=== PATIENT | female | born 1960 | race Caucasian/White ===

== ENCOUNTER → 2023-04-03 12:40 | Outpatient (CLI) | payer OTHER, SELFPAY ==
--- NOTE | 2023-04-03 12:43 | DI.MRI.S_ITS ---
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 After the administration of contrast, axial and coronal and sagittal 3D VIBE or T1 spin echo with fat saturation through the brain. COMPARISON: None. FINDINGS: Image quality: Excellent. CSF Spaces: Basal cisterns are patent. No extra-axial fluid collections. Expected dilatation of the atrium and occipital horn of the right lateral ventricle Ventricles are otherwise normal in size and shape. Brain: No midline shift. No intracranial bleeds or masses. No abnormal intracranial enhancement. The brainstem appears normal. Diffusion-weighted images demonstrate no acute ischemic insults. Encephalomalacia and gliosis within the right parietal and posterior temporal lobe secondary to prior insults. Normal intravascular flow voids are present. T2/FLAIR hyperintense signal within the periventricular and deep white matter, nonspecific and likely representing chronic microvascular ischemic change. Skull and face: Calvarial marrow is normal in signal. Orbits appear normal. Sinuses: Sinuses and mastoids appear clear. IMPRESSION: 1. No evidence of intracranial metastatic disease. 2. No acute intracranial abnormalities. 3. Chronic insult within the right parietal/posterior temporal lobe. Dictated by: Shailesh Tucker M.D. on 04/04/2023 at 9:05 Approved by: Shailesh Tucker M.D. on 04/04/2023 at 9:17
== END ==
PROVIDERS: PCP Specialist; Referring Provider Internal Medicine; Visit Provider Internal Medicine
DX: C34.92 Malignant neoplasm of unspecified part of left bronchus or lung (principal); C78.7 Secondary malignant neoplasm of liver and intrahepatic bile duct
CPT/HCPCS: 70553; A9579

== ENCOUNTER → 2023-05-26 07:48 | Outpatient (CLI) | payer OTHER, SELFPAY ==
--- NOTE | 2023-05-26 07:50 | DI.MRI.S_ITS ---
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 After the administration of contrast, axial and coronal and sagittal T1 spin echo with fat saturation through the brain. COMPARISON: [facility], MR, MR HEAD/BRAIN WO/W CON, 04/03/2023, 13:37. FINDINGS: Image quality: Excellent. CSF spaces: Basal cisterns are patent. No extra-axial fluid collections. Ventricles are normal in size and shape. Brain: No midline shift. No intracranial bleeds or masses. No abnormal intracranial enhancement. There is cerebral volume loss for age. There is periventricular white matter chronic small vessel ischemic change. The brainstem appears normal. Diffusion-weighted images demonstrate no acute ischemic insults. No change in chronic region of encephalomalacia within the right temporal parietal lobe with moderate surrounding ill-defined FLAIR signal elevation. Normal intravascular flow voids are present. Skull and face: Calvarial marrow is normal in signal. Orbits appear normal. Sinuses: Sinuses and mastoids appear clear. IMPRESSION: 1. No acute process. No recent infarct. 2. No evidence of metastatic disease. 3. 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 4. Volume loss and small vessel ischemic disease. Dictated by: Eduard Mcgovern M.D. on 05/26/2023 at 8:51 Approved by: Eduard Mcgovern M.D. on 05/26/2023 at 8:53
== END ==
PROVIDERS: PCP Specialist; Referring Provider Internal Medicine; Visit Provider Internal Medicine
DX: C34.92 Malignant neoplasm of unspecified part of left bronchus or lung (principal); C78.7 Secondary malignant neoplasm of liver and intrahepatic bile duct
CPT/HCPCS: 70553

== ENCOUNTER → 2023-08-25 14:16 | Outpatient (CLI) | payer OTHER, SELFPAY ==
[2023-08-25 15:31] LABS: Add Manual Diff / Slide Review NO; Basophils Absolute Auto 100 /uL (0-100); Basophils Percent Auto 0.8 % (0-2); Eosinophils Absolute Auto 200 /uL (0-450); Eosinophils Percent Auto 3.3 % (2-4); Hematocrit 36.8 % (36-46); Lymphocytes Absolute Auto 1300 /uL (1100-4500); Lymphocytes Percent Auto 17.9 % (25-40); Mean Corpuscular HGB Conc 32.5 % (30-36); Mean Corpuscular Hemoglobin 27.1 PG (26-34); Mean Corpuscular Volume 83.5 fL (80-100); Monocytes Absolute Auto 400 /uL (0-900); Monocytes Percent Auto 5.9 % (3-14); Neutrophils Absolute Auto 5100 /uL (1500-7000); Neutrophils Percent Auto 72.1 % (50-75); Platelet Count 216 X10^3/uL (150-400); Red Blood Cell Count 4.41 X10^6/uL (4.0-5.2); Red Cell Distribution Width 17.4 % (11.6-14.8); White Blood Cell Count 7.1 X10^3/uL (4.5-11.0)
[2023-08-25 15:59] LABS: Alanine Aminotransferase 26 IU/L (<35); Albumin 4.1 g/dL (3.5-5.0); Albumin Globulin Ratio 1.1 (1.0-2.8); Alkaline Phosphatase 53 U/L (38-126); Aspartate Aminotransferase 28 IU/L (14-36); BUN Creatinine Ratio 29.3 (6-22); Bilirubin Total 0.4 mg/dL (0.2-1.3); Blood Urea Nitrogen 17 mg/dL (7-17); C-Reactive Protein Quant 0.7 mg/dL (<1.0); Calcium 10.4 mg/dL (8.4-10.2); Carbon Dioxide 27 mmol/L (22-32); Chloride 104 mmol/L (98-107); Estimated Glomerular Filt Rate > 60 mL/min (>60); Globulin 3.6 g/dL (1.7-4.1); Glucose 104 mg/dL (80-110); HEMOLYSIS < 15 (0-50); Potassium 4.2 mmol/L (3.4-5.1); Sodium 137 mmol/L (137-145); Total Protein 7.7 g/dL (6.3-8.2)
[2023-08-25 17:45] LABS: Erythrocyte Sedimentation Rate 44 MM/HR (0-20)
== END ==
PROVIDERS: PCP Specialist; Referring Provider Ophthalmology; Visit Provider Ophthalmology
DX: H47.011 Ischemic optic neuropathy, right eye (principal); H35.81 Retinal edema
CPT/HCPCS: 36415; 80053; 85025; 85651; 86140